=== PATIENT | female | born 1985 | race Asian ===

== ENCOUNTER 2019-08-29 21:55 | Emergency (ER) | payer OTHER ==
[~2019-08-29] VITALS: Ht 152.4 cm; Wt 52.3 kg
[2019-08-29] MEDS ORDERED: ACET-908 PO (22:11)
[2019-08-29] MEDS ORDERED: IBUPROFEN 800 MG TAB PO ONE (22:15)
[2019-08-29] MEDS ORDERED: ACETAMINOPHEN 325 MG TAB PO ONE (22:45)
[2019-08-29 22:54] LABS: INFLUENZA A AMPLIFICATION NEGATIVE (NEGATIVE); INFLUENZA B AMPLIFICATION NEGATIVE (NEGATIVE)
[2019-08-29 23:26] VITALS: BP 116/68
== END 2019-08-29 23:32 | disposition home or self-care (01) ==
LOC: M ED 21:55
DX: B34.9 Viral infection, unspecified (principal)

== ENCOUNTER → 2019-09-01 | Outpatient (REF) | payer OTHER ==
[~2019-09-01] MED LIST: ACET-908 PO
== END ==
LOC: M LAB REF 12:38
PROVIDERS: ATTEND Physician Assistant
DX: J02.9 Acute pharyngitis, unspecified (principal)

== ENCOUNTER → 2021-05-16 | Outpatient (REF) | payer OTHER ==
[~2021-05-16] MED LIST changes: -ACET-908 PO; +ACET-910 PO
[2021-05-16 13:25] LABS: APPEARANCE, URINE CLOUDY (CLEAR); BACTERIA, URINE AUTO 1+ (NEGATIVE); BILIRUBIN, URINE AUTO NEGATIVE (NEGATIVE); BLOOD, URINE BLOOD 3+ (NEGATIVE); COLOR, URINE YELLOW (YELLOW); GLUCOSE, URINE (UA) AUTO NEGATIVE (NEGATIVE); KETONE, URINE AUTO NEGATIVE (NEGATIVE); LEUKOCYTE ESTERASE, URINE AUTO 2+ (NEGATIVE); MUCUS, URINE SMALL (NEGATIVE); NITRITE, URINE AUTO NEGATIVE (NEGATIVE); PROTEIN, URINE AUTO 1+ mg/dL (NEGATIVE); RBC, URINE AUTO TNTC /HPF (0-3); SPECIFIC GRAVITY URINE AUTO 1.024 (1.002-1.035); SQUAMOUS EPITHELIAL CELL UR AU 1 /HPF (0-6); UROBILINOGEN, URINE AUTO 0.2 mg/dL (0.0-2.0); WBC, URINE AUTO 146 /HPF (0-3)
== END ==
LOC: M LAB REF 12:39
PROVIDERS: ATTEND Physician Assistant Medical
DX: N39.0 Urinary tract infection, site not specified (principal)